=== PATIENT | male | born 1990 | race African-American/Black ===

== ENCOUNTER 2022-01-29 10:08 | Emergency (ER) | payer OTHER ==
[~2022-01-29] VITALS: Ht 180.3 cm; Wt 120.9 kg
[~2022-01-29 10:08] MED LIST: CLEOCIN HC150 MG/CAP PO; NORCO 325 MG-51 TAB PO
[2022-01-29 10:17] VITALS: TEMP 97.8
[2022-01-29 10:52] VITALS: BP 121/81; PULSE 62
== END 2022-01-29 10:54 | disposition home or self-care (01) ==
LOC: COL.ER 10:08
DX: J06.9 Acute upper respiratory infection, unspecified (principal); Z28.310 Unvaccinated for COVID-19